=== PATIENT | male | born 2000 | race Hispanic/Latino ===

== ENCOUNTER 2021-05-28 04:52 | Emergency (ER) | payer SELFPAY ==
[2021-05-28] MEDS ORDERED: Lidocaine 1% (PF) 30 ML VIAL ONE (05:17)
[2021-05-28] MEDS ORDERED: Bacitracin 1 PK ONE (06:27)
== END 2021-05-28 07:00 | disposition home or self-care (01) ==
LOC: NAV ERS 04:52
DX: S01.81XA Laceration without foreign body of other part of head, initial encounter (principal); F10.129 Alcohol abuse with intoxication, unspecified; W25.XXXA Contact with sharp glass, initial encounter
CPT/HCPCS: 12013; 70450; 70486; 72125; J2001

== ENCOUNTER 2021-06-04 12:02 | Emergency (ER) | payer SELFPAY | END 2021-06-04 12:33 | disposition home or self-care (01) | LOC: NAV ERS 12:02 | DX: S01.81XD Laceration without foreign body of other part of head, subsequent encounter (principal) ==